=== PATIENT | female | born 1945 | race Caucasian/White ===

== ENCOUNTER → 2016-02-24 | Outpatient (REF) | payer MEDICARE, MEDICAID ==
[~2016-02-24] MED LIST: /CARB4TA PO; /FENO14TA PO; ACET-654 PO; ALBU20IN INH; AMBI12.52 PO; AMBI5TAB PO; ATIV1TAB7 PO; AXID PO; BLOOD THINNER; BUSP10TA PO; BUSPAR PO; CALCTAB75 PO; CHEW500C2 PO; CIPR500T89 PO; COLE1TA PO; CRES40TA PO; FLAG500T PO; FLON0.05; LISINOPRIL/HCTZ PO; NEXI40GR PO; REME30TA PO; SING10TA32 PO; SING5CHW PO; ZETI10TA21 PO; [UNRECOGNIZED DRUG - CODE] PO; lisinopril/hctz PO; spiriva INH
== END | disposition home or self-care (01) ==
LOC: M LAB REF 12:16
PROVIDERS: ATTEND Internal Medicine Medical Oncology
DX: C50.919 Malignant neoplasm of unspecified site of unspecified female breast (principal)

== ENCOUNTER → 2016-03-09 | Outpatient (REF) | payer MEDICARE, MEDICAID | END | disposition home or self-care (01) | LOC: M LAB REF 13:22 | PROVIDERS: ATTEND Internal Medicine Medical Oncology | DX: C50.919 Malignant neoplasm of unspecified site of unspecified female breast (principal) ==

== ENCOUNTER → 2016-03-30 | Outpatient (REF) | payer MEDICARE, MEDICAID | END | disposition home or self-care (01) | LOC: M LAB REF 13:03 | PROVIDERS: ATTEND Internal Medicine Medical Oncology | DX: C50.919 Malignant neoplasm of unspecified site of unspecified female breast (principal); R97.8 Other abnormal tumor markers ==

== ENCOUNTER → 2016-04-20 | Outpatient (REF) | payer MEDICARE, MEDICAID | LOC: M LAB REF 13:04 | PROVIDERS: ATTEND Internal Medicine Medical Oncology | DX: C79.81 Secondary malignant neoplasm of breast (principal) ==

== ENCOUNTER → 2016-05-18 | Outpatient (CLI) | payer MEDICARE, MEDICAID ==
[~2016-05-18] MED LIST changes: +GASTROGRAFIN SOLUTION 30ML (Q9963) As Ordered ONE; +ISOVUE-370 76% 100ML VIAL (Q9967) As Ordered ONE
--- NOTE | 2016-05-18 12:06 | REP ---
Clinical: History of breast cancer for restaging. Technique: Axial contrast enhanced images from the lung bases to the pubic symphysis using oral and 100 ml Isovue 370 intravenous contrast material with precontrast and delayed images of the abdomen as well as coronal and sagittal re-formations Comparison: 02/04/2016, 04/20/2015. Findings: Metastatic lung lesions appear increased in size from prior examinations. Visualized portions of the heart and pericardium are normal. The heterogeneously enhancing and partially necrotic infiltrating liver mass involving primarily the left lobe and anterior segment right lobe of the liver is essentially similar in morphology but may be slightly progressive. The gallbladder is distended with wall thickening and pericholecystic fluid and a small amount of perihepatic fluid is also identified which is increased from prior examination. A 13 mm hyperenhancing splenic lesion remains essentially unchanged. The pancreas, bilateral adrenal glands and kidneys appear normal/stable. Extensive portasystemic collateral circulation including esophageal varices are identified in the upper abdomen and similar to prior examination. Evaluation of the enteric system demonstrates a somewhat irregular mural thickening predominately involving the cecum and ascending / transverse colon which has progressed since prior examination but is otherwise nonspecific. There is no evidence for bowel obstruction. A small to moderate amount of ascites is appreciated extending into the pelvis and vascular engorgement throughout the mesentery is also appreciated. Moderate fecal stasis primarily involving the descending and sigmoid colon to the rectum noted along with scattered diverticula. Pelvis demonstrates collapsed bladder and evidence for prior hysterectomy. No significant retroperitoneal adenopathy. Musculoskeletal structures demonstrate degenerative changes without focal osseous abnormality. Impression: 1. Metastatic lung lesions increased in size from prior examination. 2. Heterogeneously enhancing infiltrating liver mass appears morphologically stable but may be slightly increased and more prominent suggesting active progression of disease. 3. Moderate ascites as well as distended gallbladder with gallbladder wall thickening. Upper abdominal and paraesophageal varices, irregular mural thickening to portions of the colon as described above and vascular engorgement to the mesenteric vasculature are nonspecific findings. These findings may be related to portal hypertension and portosystemic shunting although active pathology given the patient's history of metastatic breast cancer are also within differential diagnosis. Signed by Tucker Calderon MD 05/18/2016 11:58 A
--- NOTE | 2016-05-18 12:21 | REP ---
Clinical: Breast cancer for restaging. Technique: Axial contrast enhanced images from the thoracic inlet to the upper abdomen using 100 ml Isovue 370 intravenous contrast material with coronal and sagittal re-formations. Comparison: 02/04/2016. Findings: Diffuse increased interstitial markings are again noted and nonspecific although lymphangitic metastatic disease cannot be excluded. Scattered bilateral metastatic nodules and mass lesions are appreciated and increased from prior examination. No pleural effusion/reaction. No pneumothorax. Tracheobronchial tree is patent. Mediastinum demonstrates stable relatively normal appearance to the thoracic aorta, heart and pericardium. Limited evaluation of the upper abdomen demonstrates heterogeneously enhancing and centrally necrotic infiltrating liver lesion with perihepatic ascites, gallbladder distension and pericholecystic fluid as well as evidence for portal venous hypertension including splenomegaly with portosystemic shunting and paraesophageal varices. Bilateral adrenal glands are normal. Right upper lobe lesion (image 41) currently measures 16.4 mm previously measuring 12.8 mm. Right lower lobe lesion (image 70) currently measures 29.7 mm previously measuring 20.8 mm. Right sulcus lesion (image 85) currently measures 11.3 mm previously measuring 7.0 mm. Left upper lobe lesion (image 27) currently measures 7.1 mm previously measuring 4 mm. Lingular lesion (image 59) currently measures 23.7 mm previously measuring 16.1 mm. Left lower lobe lesion (image 67) currently measures 15.8 mm previously measuring 12.4 mm. Further scattered nodules in the remain stable or mildly more prominent. Impression: 1. Pulmonary metastatic disease appears to have progressed from prior examination. 2. Upper abdominal findings consistent with primary hepatic neoplasm versus metastatic disease and associated secondary findings including parahepatic fluid, gallbladder distension, portosystemic shunting and evidence for portal venous hypertension. Signed by Tucker Calderon MD 05/18/2016 12:13 P
== END ==
LOC: M RAD 09:22
PROVIDERS: ATTEND Nurse Practitioner Family
DX: C50.919 Malignant neoplasm of unspecified site of unspecified female breast (principal); C78.00 Secondary malignant neoplasm of unspecified lung; R16.0 Hepatomegaly, not elsewhere classified; R18.8 Other ascites; I85.00 Esophageal varices without bleeding
CPT/HCPCS: 71260; 74178; Q9963; Q9967

== ENCOUNTER → 2016-05-23 | Outpatient (REF) | payer MEDICARE, MEDICAID ==
[~2016-05-23] MED LIST changes: -GASTROGRAFIN SOLUTION 30ML (Q9963) As Ordered ONE; -ISOVUE-370 76% 100ML VIAL (Q9967) As Ordered ONE
== END ==
LOC: M LAB REF 13:32
PROVIDERS: ATTEND Internal Medicine Medical Oncology
DX: C50.919 Malignant neoplasm of unspecified site of unspecified female breast (principal); C78.00 Secondary malignant neoplasm of unspecified lung; C79.01 Secondary malignant neoplasm of right kidney and renal pelvis

== ENCOUNTER → 2016-06-27 | Outpatient (REF) | payer MEDICARE, MEDICAID ==
[2016-06-27 13:00] LABS: INR 1.15
== END ==
LOC: M LAB REF 12:41
PROVIDERS: ATTEND Internal Medicine Medical Oncology
DX: C50.919 Malignant neoplasm of unspecified site of unspecified female breast (principal); C78.00 Secondary malignant neoplasm of unspecified lung; C79.81 Secondary malignant neoplasm of breast; C79.01 Secondary malignant neoplasm of right kidney and renal pelvis

== ENCOUNTER → 2016-07-04 | Outpatient (CLI) | payer MEDICARE, MEDICAID ==
--- NOTE | 2016-07-05 08:53 | REP ---
ULTRASOUND GUIDED PARACENTESIS: The procedure was performed under the direct supervision of Dr. Colmenares. The risks and benefits of the procedure were explained to the patient and informed consent was obtained. The largest pocket of fluid was localized in the right lower quadrant using ultrasound guidance. The skin was prepped and draped in a sterile fashion. 1% lidocaine was used as a local anesthetic. Using ultrasound guidance an 8-Malay [id number] catheter was inserted using trocar technique. 1150 mL of yellow fluid was withdrawn and discarded. The patient tolerated the procedure well and there were no immediate complications. After the appropriate amount of monitored convalescence the patient was discharged from the department. Reviewed by RICO Hinojosa 07/05/2016 07:31 PEdited and Signed by Kevin Colmenares MD 07/06/2016 09:03 A
== END ==
LOC: M RADPRO 08:40
PROVIDERS: ATTEND Internal Medicine Medical Oncology
DX: K76.89 Other specified diseases of liver (principal); R18.8 Other ascites; Z85.3 Personal history of malignant neoplasm of breast

== ENCOUNTER → 2016-07-06 | Outpatient (REF) | payer MEDICARE, MEDICAID | LOC: M LAB REF 16:36 | PROVIDERS: ATTEND Physician Assistant | DX: N39.0 Urinary tract infection, site not specified (principal) ==

== ENCOUNTER → 2016-07-19 | Outpatient (REF) | payer MEDICARE, MEDICAID ==
[2016-07-19 17:57] LABS: INR 1.14
== END ==
LOC: M LAB REF 16:39
PROVIDERS: ATTEND Internal Medicine Medical Oncology
DX: C50.919 Malignant neoplasm of unspecified site of unspecified female breast (principal); C79.01 Secondary malignant neoplasm of right kidney and renal pelvis; C79.81 Secondary malignant neoplasm of breast; C78.00 Secondary malignant neoplasm of unspecified lung; I85.00 Esophageal varices without bleeding

== ENCOUNTER → 2016-07-21 | Outpatient (CLI) | payer MEDICARE, MEDICAID ==
--- NOTE | 2016-07-22 16:54 | REP ---
ULTRASOUND-GUIDED PARACENTESIS: The procedure was performed under the direct supervision of Dr. Joiner. The risks and benefits of the procedure were explained to the patient and informed consent was obtained. The largest pocket of fluid was localized in the right lower quadrant using ultrasound guidance. The skin was prepped and draped in a sterile fashion. 1% Lidocaine was used as a local anesthetic. Using ultrasound guidance, an #8-Portuguese [id number] catheter was inserted using trocar technique. 1150 mL of clear yellow fluid was withdrawn and discarded. The patient tolerated the procedure well and there were no immediate complications. After the appropriate amount of monitored convalescence the patient was discharged from the department. Reviewed by RICO Hinojosa 07/25/2016 03:12 PEdited and Signed by Yong Joiner MD 07/25/2016 04:51 P
== END ==
LOC: M RADPRO 14:53
PROVIDERS: ATTEND Nurse Practitioner Family
DX: R18.8 Other ascites (principal); Z85.05 Personal history of malignant neoplasm of liver; Z85.3 Personal history of malignant neoplasm of breast; Z88.8 Allergy status to other drugs, medicaments and biological substances; Z79.899 Other long term (current) drug therapy

== ENCOUNTER → 2016-08-26 | Outpatient (REF) | payer MEDICAID, MEDICARE, OTHER ==
[~2016-08-26] MED LIST changes: -ACET-654 PO; +ACET1TAB17 PO; +CIPR-249 PO; -CIPR500T89 PO
== END ==
LOC: M LAB REF 16:37
PROVIDERS: ATTEND Physician Assistant
DX: R30.0 Dysuria (principal)